=== PATIENT | male | born 1960 | race Caucasian/White ===

== ENCOUNTER 2017-07-14 13:02 | Day surgery (SDC) | payer MEDICAID, OTHER ==
[2017-07-14] MEDS ORDERED: Sodium Chloride 0.9% 10 ML Syringe FLUSH PRN (15:22)
[2017-07-14] MEDS ORDERED: cefOXitin 2 GM in Sodium Chloride 0.9% 100 ML IV ONE (15:22)
[2017-07-14] MEDS ORDERED: cefOXitin 2 GM Vial IV ONE (15:45)
[2017-07-14] MEDS: Lactated Ringers 1,000 ML IV SCH ×2 (16:28→19:14)
[2017-07-14] MEDS ORDERED: Propofol 200 MG/20 ML SDV IV ONE (16:51)
[2017-07-14] MEDS ORDERED: Midazolam 1 MG/ML 2 ML SDV IV ONE (16:51)
[2017-07-14] MEDS ORDERED: Bupivacaine 0.75%/D5W 2 ML Amp ISPINAL ONE (16:51)
[2017-07-14] MEDS ORDERED: fentaNYL 100 MCG/2 ML SDV IV ONE (16:51)
[2017-07-14] MEDS ORDERED: Morphine 4 MG/ML Syringe IVPUSH PRN (18:21)
[2017-07-14] MEDS ORDERED: Ondansetron 4 MG/2 ML SDV IVPUSH PRN (18:21)
--- NOTE | 2017-07-14 18:22 | PCM.OPNOTE ---
- General Post-Op/Procedure Note Date of Surgery/Procedure: 07/14/17 Operative Procedure(s): drainage of ischiorectal abscess Findings: ischiorectal abscess Pre Op Diagnosis: perirectal abscess Post-Op Diagnosis: Same Anesthesia Technique: Spinal Primary Surgeon: Ric eSymour Anesthesia Provider: Rona Carnes Pathology: none EBL in mLs: 2 Drain/Tube Comments:: 14 FR miller Complications: None Condition: Good Free Text/Narrative:: Intake & Output 07/14/17 07/14/17 07/14/17 06:59 14:59 22:59 Intake Total 0 Balance 0 see dictation
[2017-07-14] MEDS: Acetaminophen/HYDROcodone 325-5 MG Tab PO PRN (21:48)
[2017-07-14] MEDS: cefOXitin 2 GM in Water For Injection, Sterile 20 ML IV SCH (21:55)
[2017-07-14] MEDS ORDERED: cefOXitin 2 GM in Water For Injection, Sterile 20 ML IV SCH (22:00)
[2017-07-14] MEDS: Ketorolac 30 MG/ML SDV IVPUSH PRN (23:40)
--- NOTE | 2017-07-14 23:41 | OR ---
DATE OF OPERATION: 07/14/2017 SURGEON: Ric Seymour MD PROCEDURE PERFORMED: Exam under anesthesia and drainage of perirectal abscess. PREOPERATIVE DIAGNOSIS: Rectal pain. POSTOPERATIVE DIAGNOSIS: Ischiorectal abscess. INDICATIONS FOR PROCEDURE: This is a 56-year-old white male who is admitted today with a complaint of rectal pain. This has gotten progressively worse during the week, and while on physical exam in the clinic, there was no overt evidence of an abscess. Given his level of pain, I recommended an exam under anesthesia, and if we did indeed find an abscess, to drain it. INTRAOPERATIVE FINDINGS: Are as follows; ischiorectal abscess was identified. This was readily drained. Cultures were obtained and a 14-Yor[place] Lucas catheter was placed in the abscess cavity. DESCRIPTION OF PROCEDURE: After an excellent spinal anesthetic, a saddle block was administered. The patient was placed in prone jackknife position, prepped and draped in the usual sterile manner. Digital rectal exam was carried out, and while no overt abscess was noted on placement of the speculum, we did note some purulent material draining from just lateral to the midline on posterior aspect of the rectum. This track was easily opened and approximately 10 mL of purulent material was obtained. This was cultured. After breaking up any loculations, the Lucas catheter was placed into the abscess cavity. This was tunneled under a small amount of skin just to aid in positioning of the catheter as we had hard time keeping the balloon in the defect itself. The catheter was sutured in position with two interrupted 3-0 chromic gut and then a final 2-0 nylon was used to suture the drain to the lateral aspect of the patient's buttock to keep it from moving. This was then attached to a small catheter drainage bag. The anus was packed with a native of [place] and the procedure was concluded. He was taken to recovery room in good condition. /[id number] /MODL
[2017-07-15] MEDS: Lactated Ringers 1,000 ML IV SCH (03:30)
[2017-07-15] MEDS: cefOXitin 2 GM in Water For Injection, Sterile 20 ML IV SCH (03:32)
[2017-07-15] MEDS: Acetaminophen/HYDROcodone 325-5 MG Tab PO PRN ×2 (05:17→11:12)
[2017-07-15] MEDS ORDERED: cefOXitin 2 GM in Water For Injection, Sterile 20 ML IV SCH ×2 (07:15→10:00)
[2017-07-15] MEDS: Ketorolac 30 MG/ML SDV IVPUSH PRN (07:51)
[2017-07-15] MEDS ORDERED: Docusate Sodium 100 MG Cap PO SCH (09:00)
--- NOTE | 2017-07-15 10:22 | PCM.SURGPN ---
- General Info Date of Service: 07/15/17 Functional Status: Reports: Pain Controlled, Ambulating - Review of Systems HEENT: Reports: No Symptoms Pulmonary: Reports: No Symptoms Cardiovascular: Reports: No Symptoms Gastrointestinal: Reports: No Symptoms - Patient Data Vitals - Most Recent: Last Vital Signs Temp 36.6 C 07/15/17 07:40 Pulse 74 07/15/17 07:40 Resp 18 07/15/17 07:40 BP 125/69 07/15/17 07:40 Pulse Ox 96 07/15/17 07:40 Weight - Most Recent: 162.522 kg I&O - Last 24 Hours: Intake & Output 07/14/17 07/15/17 07/15/17 22:59 06:59 14:59 Intake Total 0 2219 465 Output Total 900 Balance 0 1319 465 Lab Results Last 24 Hrs: Laboratory Results - last 24 hr 07/14/17 07/14/17 07/15/17 Range/Units 15:40 15:40 06:15 WBC 14.2 H 14.4 H (4.5-12.0) X10-3/uL RBC 5.44 4.92 (4.30-5.75) x10(6)uL Hgb 15.3 14.2 (11.5-15.5) g/dL Hct 44.6 40.5 (30.0-51.3) % MCV 82.0 82.2 (80-96) fL MCH 28.1 28.8 (27.7-33.6) pg MCHC 34.3 35.1 (32.2-35.4) g/dL RDW 12.5 12.5 (11.5-15.5) % Plt Count 196 154 (125-369) X10(3)uL MPV 8.5 8.8 (7.4-10.4) fL Neut % (Auto) 72.7 (46-82) % Lymph % (Auto) 16.0 (13-37) % Wirt % (Auto) 7.1 (4-12) % Eos % (Auto) 1 (1.0-5.0) % Baso % (Auto) 3 H (0-2) % Neut # (Auto) 10.3 H (1.6-8.3) # Lymph # (Auto) 2.3 (0.6-5.0) # Wirt # (Auto) 1.0 (0.0-1.3) # Eos # (Auto) 0.1 (0.0-0.8) # Baso # (Auto) 0.5 H (0.0-0.2) # Add Manual Diff Yes Neutrophils % (Manual) 81 (46-82) % Lymphocytes % (Manual) 12 L (13-37) % Monocytes % (Manual) 5 (4-12) % Eosinophils % (Manual) 2 (0-5) % Sodium 139 (135-145) mmol/L Potassium 3.6 (3.5-5.3) mmol/L Chloride 101 (100-110) mmol/L Carbon Dioxide 27 (21-32) mmol/L BUN 12 (7-18) mg/dL Creatinine 1.0 (0.70-1.30) mg/dL Est Cr Clr Drug Dosing 106.63 mL/min Estimated GFR (MDRD) > 60 (>60) BUN/Creatinine Ratio 12.0 (9-20) Glucose 97 (80-116) mg/dL Calcium 9.0 (8.6-10.2) mg/dL [place] Results Last 24 Hrs: Microbiology 07/14/17 17:29 Gram Stain - Final Buttock, Unspecified Med Orders - Current: Current Medications Hydrocodone Bitart/Acetaminophen ([place] 325-5 Mg) 2 tab PO Q4H PRN PRN Reason: Pain (moderate 4-6) Last Admin: 07/15/17 05:17 Dose: 2 tab Docusate Sodium (Colace) 100 mg PO BID COUNT INCLUDES THE [facility] Last Admin: 07/15/17 09:33 Dose: 100 mg Lactated Ringer's (Ringers, Lactated) 1,000 mls @ 125 mls/hr IV ASDIRECTED COUNT INCLUDES THE [facility] Last Admin: 07/15/17 03:30 Dose: 125 mls/hr Cefoxitin Sodium 2 gm/ Sterile (Water) 20 mls @ 300 mls/hr IV Q6H COUNT INCLUDES THE [facility] Last Admin: 07/15/17 09:33 Dose: 300 mls/hr Ketorolac Tromethamine (Toradol) 30 mg IVPUSH Q8H PRN PRN Reason: Pain Stop: 07/19/17 18:30 Last Admin: 07/15/17 07:51 Dose: 30 mg Morphine Sulfate (Morphine) 4 mg IVPUSH Q1H PRN PRN Reason: Pain (severe 7-10) Ondansetron HCl (Zofran) 4 mg IVPUSH Q6H PRN PRN Reason: Nausea/Vomiting Sodium Chloride (Saline Flush) 10 ml FLUSH ASDIRECTED PRN PRN Reason: Keep Vein Open Last Admin: 07/14/17 16:24 Dose: 10 ml Discontinued Medications Amoxicillin/Clavulanate Potassium (Augmentin 875 Mg/125 Mg) 1 tab PO Q12HR COUNT INCLUDES THE [facility] Cefoxitin Sodium (Mefoxin) 2 gm IV ONETIME ONE Stop: 07/14/17 15:46 Last Admin: 07/14/17 16:18 Dose: 2 gm Cefoxitin Sodium 2 gm/ Sterile (Water) 20 mls @ 300 mls/hr IV Q6H COUNT INCLUDES THE [facility] Last Admin: 07/15/17 03:32 Dose: 300 mls/hr - Exam General: Alert, Oriented Lungs: Clear to Auscultation, Normal Respiratory Effort Cardiovascular: Regular Rate, Regular Rhythm GI/Abdominal Exam: Normal Bowel Sounds, Soft, Non-Tender - Problem List & Annotations (1) Perirectal abscess SNOMED Code(s): 83241523 Code(s): K61.1 - RECTAL ABSCESS Status: Acute Current Visit: Yes - Problem List Review Problem List Initiated/Reviewed/Updated: Yes - My Orders Last 24 Hours: Active Orders 24 hr Category Date Time Status Patient Status [ADT] Routine ADT 07/14/17 15:22 Active Ambulate [RC] Q4HPRN Care 07/14/17 18:22 Active Drain Management [RC] QSHIFT Care 07/14/17 18:22 Active Notify Provider Vital Signs [RC] PRN Care 07/14/17 18:22 Active Oxygen Therapy [RC] PRN Care 07/14/17 18:22 Active RT Incentive Spirometry [RC] Q2HWA Care 07/14/17 18:21 Active Ready for Discharge [RC] PER UNIT ROUTINE Care 07/15/17 10:20 Ordered Vital Signs [RC] Q4H Care 07/14/17 18:21 Active Clear Liquid Diet [DIET] Diet 07/14/17 Dinner Ordered CULTURE ANAEROBIC [RM] Routine Lab 07/14/17 17:29 Results CULTURE ROUTINE + SMEAR [RM] Routine Lab 07/14/17 17:29 Results Acetaminophen/HYDROcodone [[place] 325-5 MG] Med 07/14/17 18:21 Active 2 tab PO Q4H PRN Docusate Sodium [Colace] Med 07/15/17 09:00 Active 100 mg PO BID Ketorolac [Toradol] Med 07/14/17 18:30 Active 30 mg IVPUSH Q8H PRN Lactated Ringers [Ringers, Lactated] 1,000 ml Med 07/14/17 15:30 Active IV ASDIRECTED Morphine Med 07/14/17 18:21 Active 4 mg IVPUSH Q1H PRN Ondansetron [Zofran] Med 07/14/17 18:21 Active 4 mg IVPUSH Q6H PRN Sodium Chloride 0.9% [Saline Flush] Med 07/14/17 15:22 Active 10 ml FLUSH ASDIRECTED PRN cefOXitin [Mefoxin] 2 gm Med 07/15/17 10:00 Active Water For Injection, Sterile [Sterile Water for Injection] 20 ml IV Q6H Peripheral IV Insertion Adult [OM.PC] Routine Oth 07/14/17 15:22 Ordered Sequential Compression Device [OM.PC] Routine Oth 07/14/17 15:22 Ordered Resuscitation Status Routine Resus Stat 07/14/17 15:22 Ordered Medication Orders Hydrocodone Bitart/Acetaminophen ([place] 325-5 Mg) 2 tab PO Q4H PRN PRN Reason: Pain (moderate 4-6) Last Admin: 07/15/17 05:17 Dose: 2 tab Admin: 07/14/17 21:48 Dose: 2 tab Docusate Sodium (Colace) 100 mg PO BID COUNT INCLUDES THE [facility] Last Admin: 07/15/17 09:33 Dose: 100 mg Lactated Ringer's (Ringers, Lactated) 1,000 mls @ 125 mls/hr IV ASDIRECTED MONISHA Last Admin: 07/15/17 03:30 Dose: 125 mls/hr Infusion: 07/15/17 03:14 Dose: 125 mls/hr Admin: 07/14/17 19:14 Dose: 125 mls/hr Infusion: 07/14/17 19:14 Dose: 125 mls/hr Admin: 07/14/17 16:28 Dose: 125 mls/hr Cefoxitin Sodium 2 gm/ Sterile (Water) 20 mls @ 300 mls/hr IV Q6H MONISHA Last Admin: 07/15/17 09:33 Dose: 300 mls/hr Ketorolac Tromethamine (Toradol) 30 mg IVPUSH Q8H PRN PRN Reason: Pain Stop: 07/19/17 18:30 Last Admin: 07/15/17 07:51 Dose: 30 mg Admin: 07/14/17 23:40 Dose: 30 mg Morphine Sulfate (Morphine) 4 mg IVPUSH Q1H PRN PRN Reason: Pain (severe 7-10) Ondansetron HCl (Zofran) 4 mg IVPUSH Q6H PRN PRN Reason: Nausea/Vomiting Sodium Chloride (Saline Flush) 10 ml FLUSH ASDIRECTED PRN PRN Reason: Keep Vein Open Last Admin: 07/14/17 16:24 Dose: 10 ml - Assessment Assessment (Free Text/Narrative):: doing well sp drainage. - Plan Plan (Free Text/Narrative):: will allow to go home po antibiotics, po pain meds, fiber, follow up Monday to remove drain
[2017-07-15] MEDS ORDERED: Amoxicillin/Clavulanate K 875-125 MG Tab PO SCH (10:30)
== END 2017-07-15 11:20 | disposition home or self-care (01) ==
LOC: FB.MS 13:02 → FB.SDS 13:02
PROVIDERS: ATTEND Surgery
DX: K61.3 Ischiorectal abscess (principal)
CPT/HCPCS: 36415; 80048; 85025; 87070; 87075; 87205; A9270-GY; J0694; J1885; J7050; J7120

== ENCOUNTER 2017-08-22 08:07 | Day surgery (SDC) | payer OTHER ==
[2017-08-22] MEDS ORDERED: Lactated Ringers 1,000 ML IV SCH (08:15)
[2017-08-22] MEDS ORDERED: Sodium Chloride 0.9% 10 ML Syringe FLUSH PRN (08:15)
[2017-08-22] MEDS ORDERED: cefOXitin 1 GM Vial ONE (09:03)
[2017-08-22] MEDS ORDERED: Propofol 200 MG/20 ML SDV IV ONE (10:30)
[2017-08-22] MEDS ORDERED: fentaNYL 100 MCG/2 ML SDV IV ONE (10:30)
[2017-08-22] MEDS ORDERED: Midazolam 1 MG/ML 2 ML SDV IV ONE (10:30)
[2017-08-22] MEDS ORDERED: Ketorolac 30 MG/ML SDV IVPUSH ONE (10:30)
[2017-08-22] MEDS ORDERED: Bupivacaine 0.75%/D5W 2 ML Amp INJECT ONE (10:30)
[2017-08-22] MEDS ORDERED: Bupivacaine 0.5% 30 ML SDV INJECT ONE (11:08)
[2017-08-22] MEDS ORDERED: Lidocaine 1% with EPINEPHrine 1:100,000 20 ML MDV INJECT ONE (11:09)
--- NOTE | 2017-08-22 11:34 | PCM.OPNOTE ---
- General Post-Op/Procedure Note Date of Surgery/Procedure: 08/22/17 Operative Procedure(s): eua and drain placment Findings: rectal abscess Pre Op Diagnosis: rectal abscess Post-Op Diagnosis: Same Anesthesia Technique: Regional Block Primary Surgeon: Ric Seymour Anesthesia Provider: Morena Urbano Drain/Tube Comments:: 14 fr Condition: Good Free Text/Narrative:: see dictation
[2017-08-22] MEDS ORDERED: Acetaminophen/HYDROcodone 325-5 MG Tab PO ONE (11:48)
--- NOTE | 2017-08-23 08:28 | OR ---
DATE OF OPERATION: 08/22/2017 SURGEON: Ric Seymour MD PROCEDURE PERFORMED: Exam under anesthesia and drain placement. PREOPERATIVE DIAGNOSIS: Perirectal abscess. POSTOPERATIVE DIAGNOSIS: Perirectal abscess. INDICATIONS FOR PROCEDURE: This is a 56-year-old white male who had an I and D done of what appeared to be intersphincteric abscess. He has had some persistent draining and fevers over the weekend, several weeks after the drain was removed. He presents now for an exam and drain placement again. DESCRIPTION OF OPERATION: After an excellent regional anesthetic was administered, the patient was placed in prone jackknife position, prepped and draped in the usual sterile manner. Examination revealed an open sidewall lesion with a tract superior to the sphincteric muscles. 14-[place] drain was then placed into the drain cavity itself, was then sutured to the sidewall of the colon, just above the anal verge with 2-0 chromic gut and then to the skin exteriorly with a 3-0 Prolene. Dressing was applied. The patient was taken to recovery in good condition. /[id number] /MODL
== END 2017-08-22 14:51 | disposition home or self-care (01) ==
LOC: FB.SDS 08:07
PROVIDERS: ATTEND Surgery
DX: K61.1 Rectal abscess (principal); E78.5 Hyperlipidemia, unspecified; Z79.899 Other long term (current) drug therapy
CPT/HCPCS: 00902; 46040; A9270; J0694; J1885; J2250; J2704; J3010; J7030; J7120